=== PATIENT | male | born 1985 | race Caucasian/White ===

== ENCOUNTER 2022-05-25 18:06 | Emergency (ER) | payer BC ==
[2022-05-25] MEDS ORDERED: Ketorolac 60 MG/2 ML SDV IM ONE (18:54)
[2022-05-25 19:24] VITALS: BP 115/58; PULSE 53
== END 2022-05-25 19:24 | disposition home or self-care (01) ==
LOC: MW.ED 18:06
DX: R21 Rash and other nonspecific skin eruption (principal)
CPT/HCPCS: 96372; 99282; J1885

== ENCOUNTER 2024-10-16 21:23 | Emergency (ER) | payer BC ==
[2024-10-16] MEDS: Ondansetron 4 MG Tab.DIS PO ONE (23:10)
[2024-10-16] MEDS: Sodium Chloride 0.9% 1,000 ML IV ONE (23:10)
[2024-10-16] MEDS: Morphine 4 MG/ML Syringe IM ONE (23:11)
[2024-10-16 23:23] LABS: BASOPHILS ABSOLUTE AUTO 0.06 K/uL (0.00-0.20); BASOPHILS PERCENT AUTO 0.7 % (0.0-1.0); EOSINOPHILS ABSOLUTE AUTO 0.31 K/uL (0.00-0.45); EOSINOPHILS PERCENT AUTO 3.7 % (0.0-6.0); IMMATURE GRAN ABSOLUTE AUTO 0.01 K/uL (0.00-0.05); IMMATURE GRAN PERCENT AUTO 0.1 % (0.0-0.4); LYMPHOCYTES ABSOLUTE AUTO 3.36 K/uL (1.00-4.80); LYMPHOCYTES PERCENT AUTO 39.7 % (24.0-44.0); MEAN CORPUSCULAR HEMOGLOBIN 29.4 pg (28.0-32.0); MEAN CORPUSCULAR VOLUME 83.9 fL (83.0-99.0); MEAN PLATELET VOLUME 9.1 fL (9.4-12.4); MONOCYTES ABSOLUTE AUTO 0.82 K/uL (0.00-0.80); MONOCYTES PERCENT AUTO 9.7 % (0.0-8.0); NEUTROPHILS ABSOLUTE AUTO 3.91 K/uL (1.80-7.70); NEUTROPHILS PERCENT AUTO 46.1 % (41.0-71.0); PLATELET COUNT,PLT 208 K/uL (150-400); RED BLOOD CELL COUNT 4.77 M/uL (4.52-5.90); WHITE BLOOD CELL COUNT,WBC 8.47 K/uL (3.9-11.3)
[2024-10-16 23:54] LABS: A/G RATIO 1.2 (0.9-1.6); ALBUMIN 3.6 g/dL (3.4-5.0); BILIRUBIN TOTAL 0.7 mg/dL (0.2-1.0); CALCIUM 8.9 mg/dL (8.5-10.1); EST CRCL DRUG DOSING (CG) 94.05 mL/min; POTASSIUM,K 3.7 mmol/L (3.5-5.1); PROTEIN TOTAL,TP 6.7 g/dL (6.4-8.2)
[2024-10-17] MEDS: Ketorolac 30 MG/ML SDV IVPUSH ONE (00:46)
[2024-10-17 01:33] VITALS: BP 110/70; PULSE 70
== END 2024-10-17 01:34 | disposition home or self-care (01) ==
LOC: MW.ED 21:23
DX: L55.0 Sunburn of first degree (principal); M79.661 Pain in right lower leg; M79.662 Pain in left lower leg; Z79.899 Other long term (current) drug therapy; Z75.3 Unavailability and inaccessibility of health-care facilities
CPT/HCPCS: 36415; 80053; 82550; 85025; 93971; 96361; 96372; 96374; 99284; A9270; J1885; J2270; J7030; 99283